=== PATIENT | male | born 1995 | race Caucasian/White ===

== ENCOUNTER 2017-01-05 09:29 | Emergency (ER) | payer OTHER ==
[~2017-01-05] VITALS: Wt 74.0 kg
[~2017-01-05 09:29] MED LIST: CYCL-319 PO; IBUP-1542 PO
[2017-01-05] MEDS ORDERED: ACETAMINOPHEN 500 MG TAB PO STA (10:06)
--- NOTE | 2017-01-05 10:17 | ERD ---
ER Documentation Chief Complaint Date/Time DATE: 01/05/17 TIME: 10:15 Chief Complaint HEADACHE INTERMITTENT FOR THE PAST MONTH. NO TRAUMA. HPI This is a 21-year-old male presenting to the emergency room complaining of severe headache since this morning. Patient describes as feeling like his head is exploding. Patient states that he has intermittent headache that comes and goes in the occipital region for the past couple months which worsens with his head movement. Patient denies taking any medications for this. He denies any nausea, vomiting, lethargy, ROS All systems reviewed and are negative except as per history of present illness. Medications Home Meds Active Scripts Acetaminophen* (Tylenol*) 325 Mg Tablet, 2 TAB PO Q6 Y for PAIN AND OR ELEVATED TEMP, #30 TAB Prov:JONATAN ANTHONY PA-C 01/05/17 Ibuprofen* (Motrin*) 600 Mg Tab, 600 MG PO Q6H Y for PAIN AND OR ELEVATED TEMP, #30 TAB Prov:TACO COLEMAN PA-C 10/15/16 Cyclobenzaprine Hcl* (Cyclobenzaprine Hcl*) 10 Mg Tablet, 10 MG PO BID, #20 TAB Prov:TACO COLEMAN PA-C 10/15/16 Allergies Allergies: Coded Allergies: No Known Allergy (Unverified , 01/05/17) PMhx/Soc Medical and Surgical Hx: pt denies Medical Hx, pt denies Surgical Hx Hx Alcohol Use: Yes Hx Substance Use: Yes Hx Tobacco Use: No Physical Exam Vitals Vital Signs Date Time Temp Pulse Resp B/P Pulse Ox O2 Delivery O2 Flow Rate FiO2 01/05/17 09:44 98.6 96 20 130/82 99 Physical Exam GENERAL: well-developed/well-nourished, in no apparent distress, non-toxic appearing HENT: NC/AT, bilateral tympanic membrane is normal with good cone of light, nares patent, oropharynx clear without exudates EYES: Conjunctiva normal, PERRLA, EOMI, no nystagmus noted NECK: Supple, no lymphadenopathy PULM: CTA bilaterally, no rales, rhonchi, or wheezing heard CV: Normal S1S2, RRR, good capillary refill GI: Soft, non-distended, normal bowel sounds, non-tender BACK: No midline tenderness, no masses, No CVAT EXT: No clubbing, cyanosis, or edema NEURO: Alert and orientated to person, place, and time. CN II-IIX intact. Gait and coordination were normal. Hand formulator strength were equal and within normal limits SKIN: Intact, normal turgor PSYCH: Normal mood and mentation, patient denied SI Results 24 hrs Current Medications Medications (Trade) Dose Ordered Sig/Niya Route PRN Reason Start Time Stop Time Status Last Admin Dose Admin Acetaminophen (Tylenol Tab) 1,000 mg ONCE STAT PO 01/05/17 10:06 01/05/17 10:07 DC 01/05/17 10:11 Procedures/MDM This is a 21-year-old male presenting to the emergency room complaining of severe headache since this morning. Patient describes as feeling like his head is exploding. Patient states that he has intermittent headache that comes and goes in the occipital region for the past couple months which worsens with his head movement. My differential diagnoses include tension, migraine, and cluster headache, overuse medication headache, subarachnoid hemorrhage, meningitis, stroke. Pain relief was given in the ED with some improvement. Neurology exam was normal, patient was speaking clearly on examination he did not seem to have any neuro deficits. However since she states that this has been the worst headache and it has been going on intermittently for the past couple months, a CT of the head was done, radiologist stated: 1. No intracranial hemorrhage or acute intracranial abnormality. 2. If clinical symptoms persist, MRI and/or MRA is recommended for further evaluation. Patient was given Tylenol in the ED I have reassessed patient and he did feel better. Patient is suitable to follow-up with his primary care physician for further treatment management hemodynamically stable and neurovascularly intact. Prescriptions were given. Discussed to follow up with a primary care physician in the next couple days. Return to the ER if condition worsens or not improving as expected. Patient agreed and understood this plan. Departure Diagnosis: Primary Impression: Headache Headache type: unspecified Headache chronicity pattern: unspecified pattern Intractability: intractable Qualified Code: R51 - Intractable headache, unspecified chronicity pattern, unspecified headache type Condition: Stable JONATAN ANTHONY PA-C Jan 05, 2017 10:17
--- NOTE | 2017-01-05 10:49 | RADRPT ---
PROCEDURE: CT Brain without contrast. CLINICAL INDICATION: Severe headache 10 out of 10 TECHNIQUE: A multiplanar CT of the brain was performed on a CT scanner utilizing axial imaging fro m the skull base through the vertex without IV contrast. The CTDIvol is 43.05 mGy and the DLP is 6 units 30.2 mGycm. One or more of the following dose reduction techniques were utilized: Automated exposure control, adjustment of the mA and/or kV according to patient size, use of iterative reconst ruction technique. COMPARISON: None FINDINGS: No evidence of intracranial hemorrhage or abnormal extra-axial fluid collection. The brain parenchyma is normal attenuation morphology with preservation of vale white differentiatio n and age appropriate size of the ventricles and subarachnoid spaces. The posterior fossa contents, brainstem, craniocervical junction, orbits, pituitary axis, paranasal sinuses, mastoid air cells, and calvarium are unremarkable. IMPRESSION: 1. No intracranial hemorrhage or acute intracranial abnormality. 2. If clinical symptoms persist, MRI and/or MRA is recommended for further evaluation. RPTAT:AAJJ Physician Rob Date Time Electronically viewed and signed by Physician Rob on 01/05/2017 10:49 SATHYA/
[2017-01-05] MEDS ORDERED: ACET325T33 PO (10:53)
== END 2017-01-05 11:02 | disposition home or self-care (01) ==
LOC: FTE 09:29
DX: R51 Headache (principal)
CPT/HCPCS: 70450; Z7502; Z7610